=== PATIENT | male | born 1995 | race Caucasian/White ===

== ENCOUNTER 2017-09-25 13:04 | Emergency (ER) | payer BC ==
[~2017-09-25] VITALS: Ht 167.6 cm; Wt 95.6 kg
[~2017-09-25 13:04] MED LIST: KEFLEX500 MG PO; MOTRIN800 MG PO; NORCO 5/3251 TABLET PO
[2017-09-25 14:32] LABS: HEMATOCRIT 46.5 % (38.0-50.0); HEMOGLOBIN 15.9 G/DL (12.5-16.6); MCH 29.2 PG (29.0-34.0); MCHC 34.2 G/DL (30.0-36.0); MCV 85.5 FL (86-99); PLATELET COUNT 221 K/uL (156-360); RBC DIS.WIDTH-CV 13.2 % (11.8-14.6); RBC DIS.WIDTH-SD 40.6 % (39-53); RED BLOOD COUNT 5.44 M/uL (4.00-5.50); WHITE BLOOD COUNT 7.6 K/uL (4.1-10.2)
[2017-09-25 14:42] LABS: CHLORIDE 106 mEq/L (99-109); POTASSIUM 4.2 mEq/L (3.7-5.4); SODIUM 139 mEq/L (136-147)
[2017-09-25 14:44] LABS: GLUCOSE 95 mg/dL (70-99)
[2017-09-25 14:47] LABS: SERUM ETHYL ALCOHOL < 10 mg/dL
[2017-09-25 14:48] LABS: GFR ESTIMATE (CALCULATED) > 59 mL/min/ (58.99-99999); UREA NITROGEN (BUN) 13 mg/dL (9-23)
[2017-09-25 16:33] VITALS: BP 123/78
== END 2017-09-25 16:55 | disposition home or self-care (01) ==
LOC: EME 13:04
DX: F32.9 Major depressive disorder, single episode, unspecified (principal); F41.9 Anxiety disorder, unspecified; F17.200 Nicotine dependence, unspecified, uncomplicated
CPT/HCPCS: 80048; 85027; 90839; 99281; 99284; G0480